=== PATIENT | male | born 1990 | race Caucasian/White ===

== ENCOUNTER 2023-11-29 13:23 | Observation (INO) | payer OTHER, SELFPAY ==
--- NOTE | ~2023-11-29 | CT_ITS ---
EXAMINATION: CT abdomen pelvis w con DATE: 11/29/2023 20:30 INDICATION: Left abdominal pain. Left flank pain. TECHNIQUE: Computed tomography (CT) of the abdomen and pelvis was performed with 100 mL Omnipaque 350 intravenous contrast. Automated exposure control and iterative reconstruction technique were employe d. The dose-length product was 635.27 mGy-cm. COMPARISON: None. FINDINGS: The visualized portions of the lung bases demonstrate minimal atelectasis on the left. No p leural effusion. The heart size is normal. No pericardial effusion. The liver and gallbladder are nor mal. Calcifications in the spleen are consistent with old granulomatous disease. The pancreas, adrena l glands, and kidneys are normal. There are no dilated loops of bowel. The appendix is normal. There are no pathologically enlarged lymph nodes. There is no free intraperitoneal fluid. There is mild tho racic and lumbar spondylosis. IMPRESSION: 1. No etiology for the patient's symptoms. Reviewed, dictated and finalized at location A.
[2023-11-29 14:22] VITALS: BP 134/72; PULSE 83; RESP 16; TEMP 36.6; O2SAT 99
--- NOTE | 2023-11-29 14:25 | ED.ABDPAIN ---
HPI - Abdominal Pain General Chief Complaint: Abdominal Pain <Laure Boyd PA-C - Last Filed: 12/01/23 12:06> Stated Complaint: abdominal pain <Laure Boyd PA-C - Last Filed: 12/01/23 12:06> Time Seen by Provider: 11/29/23 14:25 <Laure Boyd PA-C - Last Filed: 12/01/23 12:06> Focused HPI: This is a 33 year old male that presents to the ER for left sided abdominal pain and flank pain. Ongoing over the last couple of weeks intermittently. Reports feelings of constipation. The pain will go away and then returns again for a couple of days. Denies fever, vomiting, dysuria. GENERAL: Well-appearing, well-nourished, and in no acute distress. HEAD: Normocephalic, atraumatic. CHEST: Clear to auscultation. ?No respiratory distress. HEART: Regular rate and rhythm.? NEURO: ?Alert and oriented x3. Patient screened in triage and initial orders placed.? ?Additional care and disposition to be based upon?diagnostic testing and treatment. <Laure Boyd PA-C - Last Filed: 12/01/23 12:06> Focused HPI: This is a 33 year old male that presents to the ER for left sided abdominal pain and flank pain. Ongoing over the last couple of weeks intermittently. Reports feelings of constipation. The pain will go away and then returns again for a couple of days. Denies fever, vomiting, dysuria. GENERAL: Well-appearing, well-nourished, and in no acute distress. HEAD: Normocephalic, atraumatic. CHEST: Clear to auscultation. ?No respiratory distress. HEART: Regular rate and rhythm.? NEURO: ?Alert and oriented x3. Patient screened in triage and initial orders placed.? ?Additional care and disposition to be based upon?diagnostic testing and treatment. 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 <Carrie Bell MD - Last Filed: 11/30/23 00:25> Related Data Home Medications: Home Medications Medication Instructions Recorded Confirmed No Home Medications 11/30/23 11/30/23 <Laure Boyd PA-C - Last Filed: 12/01/23 12:06> Allergies/Adverse Reactions: Allergies Allergy/AdvReac Type Severity Reaction Status Date / Time No Known Allergies Allergy Unverified 11/29/23 14:26 <Laure Boyd PA-C - Last Filed: 12/01/23 12:06> Review of Systems Review of Systems: All systems are reviewed and are negative unless stated otherwise in the HPI. <Carrie Bell MD - Last Filed: 11/30/23 00:25> PMFSH Family History Family History: Family History Father Diabetes mellitus Mother Bone cancer Breast cancer Lung cancer <Laure Boyd PA-C - Last Filed: 12/01/23 12:06> Social History Social History: Social History Years smoked: 16 Smoking status: Current every day smoker Tobacco type: cigarettes Alcohol intake: never Substance use: never Do You Feel Safe in your Home?: Yes Lack of Transportation: No Lack of Food: Never True Current Housing: I Have Housing Concerned About Future Housing: No Difficulty Paying Gas/Electric Bills: No Difficulty Paying for Meds: No Currently Unemployed: No Education: Master's Degree or Higher Difficulty w/ Childcare or Family Care: No Spiritual care concerns: No <Laure Boyd PA-C - Last Filed: 12/01/23 12:06> Exam Narrative: General: Alert, awake, afebrile, in no acute distress. HEENT: PERRL, no rhinorrhea, no post nasal drip, oropharynx clear. Cardiovascular: Regular rate and rhythm, no murmurs, rubs or gallops, no peripheral edema. Respiratory: Clear to auscultation bilaterally, no tachypnea, no wheezing, no rhonchi, no rubs, no respiratory distress. Abdomen: Soft, tenderness to palpation over the left upper quadrant, nondistended, no rebound, no guarding, no peritoneal signs. Musculoskeletal: No joint swel
[2023-11-29 15:23] LABS: Basophils Percent Auto 0.4 % (0.2-1.2); Eosinophils Percent Auto 0.3 % (0-4.4); Hematocrit 52.5 % (42.0-52.0); Hemoglobin 17.6 g/dL (14.0-18.0); Immature Granulocyte Absolute 0.05 K/mm3 (0.00-0.031); Immature Granulocyte Percent A 0.5 % (0-0.5); Lymphocytes Absolute Auto 1.03 K/mm3 (0.9-3.2); Lymphocytes Percent Auto 11.3 % (18.3-44.2); Mean Corpuscular HGB Conc 33.5 g/dl (32-36); Mean Corpuscular Hemoglobin 32.3 pg (26-34); Mean Corpuscular Volume 96.3 fl (80-100); Mean Platelet Volume 10.3 fl (7.4-10.4); Monocytes Absolute Auto 0.8 K/mm3 (0.1-0.6); Monocytes Percent Auto 8.9 % (2.6-8.5); Neutrophils Absolute Auto 7.2 K/mm3 (1.3-6.7); Neutrophils Percent Auto 78.6 % (45.5-73.1); Platelet Count Result 252 k/mm3 (150-375); Red Blood Count 5.45 M/mm3 (4.6-6.20); Red Cell Distribution Width 13.8 % (11.5-14.5); White Blood Count 9.1 K/mm3 (4.5-10.0)
[2023-11-29 15:32] LABS: Alanine Aminotransferase 64 U/L (6-50); Albumin Level 4.3 g/dL (3.5-5.1); Alkaline Phosphatase 44 U/L (38-126); Anion Gap 11 mmol/L (4-12); Aspartate Amino Transferase 85 U/L (17-59); Bilirubin,Total 0.7 mg/dL (0.2-1.3); Blood Urea Nitrogen 16 mg/dL (9-20); Calcium 9.1 mg/dL (8.4-10.2); Carbon Dioxide 25 mmol/L (22-30); Chloride 97 mmol/L (98-107); Estimated CRCL calculation 132 ml/min; Estimated Glomerular Filt Rate > 60; Glucose 89 mg/dL (65-110); Lipase 417 U/L (23-300); Potassium 4.5 mmol/L (3.4-5.0); Sodium 133 mmol/L (137-145)
[2023-11-29 17:22] LABS: Add Urine Microscopic? YES; Appearance Urine Cloudy (Clear); Bacteria Urine None Seen /hpf; Bilirubin Urine Negative (Negative); Blood Urine Negative (Negative); Color Urine Dark Yellow (Yellow); Glucose Urine UA Negative (Negative); Ketones Urine Trace mg/dL (Negative); Leukocyte Esterase Ur Negative LEU/UL (Negative); Need Manual Microscopic Reviewed; Nitrate Urine Negative (Negative); Non Pathogenic Casts 0-2; Protein Urine Trace mg/dL (Negative); Specific Grav Ur 1.027 (1.001-1.035); Squamous Epithelial Cell Urine None Seen /hpf (Few); WBC Urine 0-5 /hpf (0-3)
[2023-11-29 17:26] LABS: Amorphous Sediment Urine Few
[2023-11-29 20:15] VITALS: BP 141/70; PULSE 92; RESP 18; TEMP 36.6; O2SAT 99
[2023-11-29 22:20] VITALS: BP 143/82; PULSE 80; RESP 16; TEMP 36.6; O2SAT 98
[2023-11-30] VITALS (12 sets, daily range): BP systolic 119–143; BP diastolic 59–89; PULSE 69–86; RESP 16–24; TEMP 36.2–36.6; O2SAT 96–100
[2023-11-30] MEDS: SODIUM CHLORIDE 0.9% IV 1,000 ML 999 ML IV CONT (00:17)
[2023-11-30] MEDS: MORPHINE SULFATE (*CRX) 4 MG/ML INJ IV PUSH (01:29)
[2023-11-30] MEDS: LACTATED RINGERS 1,000 ML 999 ML IV CONT (01:29)
[2023-11-30] MEDS: ONDANSETRON INJ 4 MG/2 ML VIAL IV PUSH (01:29)
[2023-11-30 11:12] LABS: Hematocrit 50.8 % (42.0-52.0); Hemoglobin 16.8 g/dL (14.0-18.0); Mean Corpuscular HGB Conc 33.1 g/dl (32-36); Mean Corpuscular Hemoglobin 31.9 pg (26-34); Mean Corpuscular Volume 96.4 fl (80-100); Mean Platelet Volume 10.3 fl (7.4-10.4); Platelet Count Result 244 k/mm3 (150-375); Red Blood Count 5.27 M/mm3 (4.6-6.20); Red Cell Distribution Width 13.9 % (11.5-14.5); White Blood Count 8.7 K/mm3 (4.5-10.0)
[2023-11-30 11:25] LABS: Anion Gap 10 mmol/L (4-12); Blood Urea Nitrogen 11 mg/dL (9-20); Carbon Dioxide 25 mmol/L (22-30); Chloride 101 mmol/L (98-107); Estimated CRCL calculation 132 ml/min; Estimated Glomerular Filt Rate > 60; Glucose 71 mg/dL (65-110); Lipase 520 U/L (23-300); Potassium 4.4 mmol/L (3.4-5.0); Sodium 136 mmol/L (137-145)
[2023-11-30 11:54] LABS: Alanine Aminotransferase 49 U/L (6-50); Aspartate Amino Transferase 71 U/L (17-59)
--- NOTE | 2023-11-30 13:26 | PM.SD2 ---
Same Day Admit/Disch: HPI History of Present Illness Chief complaint: ABD pain Narrative: Omid Ross is a 33 year old male Patient was a 33-year-old male who presented to the emergency department with complaints of left-sided abdominal left-sided flank pain. Patient reports he has intermittent episodes lasting few days and go away has begun about 8 months ago. Patient denies any fever, nausea, vomiting, shortness of breath or chest pain med episodes occur however does feel as though he is constipated or bloated. 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 Initial findings in the emergency department showed a mildly elevated lipase and liver enzymes CT abdomen showed no acute issues patient was admitted to the medical unit for IV fluids, bowel rest and pain control for possible acute pancreatitis. Following day patient reported symptoms had improved to was able to tolerate oral intake lipase levels no change liver enzymes had improved. Had long discussion with patient regarding the use supplemental vitamins that are not FDA approved as well as practicing a well-balanced diet. Plan now was for patient to discharge to home however symptoms continue return will follow-up with primary care physician recommended referral to GI to rule out any gastric ulcers. Labs were unremarkable vitals stable patient discharged home. [facility] Family History Family History Father Diabetes mellitus Mother Bone cancer Breast cancer Lung cancer Social History Social History Years smoked: 16 Smoking status: Current every day smoker Tobacco type: cigarettes Alcohol intake: never Substance use: never Do You Feel Safe in your Home?: Yes Lack of Transportation: No Lack of Food: Never True Current Housing: I Have Housing Concerned About Future Housing: No Difficulty Paying Gas/Electric Bills: No Difficulty Paying for Meds: No Currently Unemployed: No Education: Master's Degree or Higher Difficulty w/ Childcare or Family Care: No Spiritual care concerns: No Same Day Admit/Disch: Med Pre-admit Medications Home Medications Medication Instructions Recorded Confirmed Type No Home Medications 11/30/23 11/30/23 History Review of Systems Review of Systems All systems reviewed & are unremarkable except as noted in HPI and below Exam Narrative: Physical Exam: GENERAL: Alert and oriented x 3. No acute distress. EYES: EOMI. No scleral icterus. PERRLA. HEENT: Moist mucous membranes. LUNGS: Clear to auscultation bilaterally. No accessory muscle use. CARDIOVASCULAR: Regular rate and rhythm. No murmur. No JVD. S1-S2 ABDOMEN: Soft, non tenderness and non-distended. No palpable masses. EXTREMITIES: No edema. Non-tender SKIN: No rashes or lesions. Skin warm, dry. NEUROLOGIC: No focal neurological deficits. CN II-XII grossly intact PSYCHIATRIC: Appropriate mood and affect. Good judgement and insight. No visual or auditory hallucinations. No suicidal or homicidal ideation. DS: Data Data Completed and Pending Labs on day of discharge: Labs from last 24 hours 11/30/23 11/30/23 11/29/23 10:59 10:50 16:34 WBC 8.7 RBC 5.27 Hgb 16.8 Hct 50.8 MCV 96.4 MCH 31.9 MCHC 33.1 RDW 13.9 Plt Count 244 MPV 10.3 Immature Gran % (Auto) Neut % (Auto) Lymph % (Auto) [place] % (Auto) Eos % (Auto) Baso % (Auto) Lymph # (Auto) [place] # (Auto) Eos # (Auto) Baso # (Auto) Abs Immat Gran (auto) Absolute Neuts (auto) Absolute Nucleated RBC Nucleated RBC % Sodium 136 L Potassium 4.4 Chloride 101 Carbon Dioxide 25 Anion Gap 10 BUN 11 D Creatinine 0.80 Keiko
== END 2023-11-30 15:00 | disposition home or self-care (01) ==
LOC: ANHED 11-30 00:25 → ANH3MEDSUR 11-30 01:43
PROVIDERS: Nurse Practitioner Family; Physician Assistant; Admitting Provider Internal Medicine; Emergency Provider Emergency Medicine; PCP Nurse Practitioner Family; Visit Provider Internal Medicine
DX: K85.90 Acute pancreatitis without necrosis or infection, unspecified (principal); R74.01 Elevation of levels of liver transaminase levels; F17.210 Nicotine dependence, cigarettes, uncomplicated
CPT/HCPCS: 36415; 74177; 80048; 80053; 81001; 83690; 84450; 84460; 85025; 85027; 99285; G0378; J2270; J2405; J7030; J7120; Q9967

== ENCOUNTER 2024-01-20 11:20 | Outpatient (CLI) | payer OTHER, SELFPAY ==
--- NOTE | ~2024-01-20 | MR_ITS ---
EXAMINATION: MR knee LT wo con DATE: 01/20/2024 11:58 INDICATION: Left knee pain TECHNIQUE: Magnetic resonance imaging (MRI) of the left knee was performed without intravenous contra st. Sequences included coronal PD-weighted FSE, coronal PD-weighted FS FSE, sagittal T2-weighted FSE , sagittal PD-weighted FS FSE and axial PD weighted fat saturated FSE. COMPARISON: None. FINDINGS: Medial compartment: Medial meniscus is normal. Articular cartilage is normal. Lateral compartment: Lateral meniscus is normal. Articular cartilage is normal. Patellofemoral compartment: Subtle heterogeneous cartilage signal at the lateral patellar facets suspicious for partial thickness chondral fissuring. Trochlear cartilage is normal. Ligaments and tendons: Anterior and posterior cruciate ligaments are normal. The medial collateral ligament and fibular devin ateral ligament complex are normal. Mild proximal patellar tendinopathy. Enthesopathic ossicles at th e distal quadriceps tendon with additional more prominent mild tendinopathy without discrete tear. Th e visualized medial and lateral hamstring tendons as well as the iliotibial band are normal. Fluid: Physiologic amount of fluid in the joint space. No loose osteochondral bodies identified. Very small Gloria's cyst. Osseous/other: Normal marrow signal. No fracture or pathologic marrow replacing process. There is mild increased flu id signal at the medial side of the superficial suprapatellar fat pad which can be seen with fat pad impingement syndrome. IMPRESSION: 1. Suggestion of partial-thickness chondral fissuring at the lateral patellar facet. 2. Mild enthesopathy at the patellar insertions of the distal quadriceps and proximal patellar tendon s. 3. Mild increased signal at the medial side of the suprapatellar fat pad which can be seen with fat p ad impingement syndrome. Reviewed, dictated and finalized at location A. IMPRESSION: 1. Suggestion of partial-thickness chondral fissuring at the lateral patellar f acet. 2. Mild enthesopathy at the patellar insertions of the distal quadriceps and pr oximal patellar tendons. 3. Mild increased signal at the medial side of the suprapatellar fat pad which can be seen with fat pad impingement syndrome.
== END 2024-01-20 11:21 | disposition home or self-care (01) ==
LOC: GOSHIMG 11:24
PROVIDERS: PCP Nurse Practitioner Family; Visit Provider Nurse Practitioner Family
DX: M76.52 Patellar tendinitis, left knee (principal); M77.9 Enthesopathy, unspecified; M25.862 Other specified joint disorders, left knee
CPT/HCPCS: 73721